=== PATIENT | female | born 1930 | race Caucasian/White ===

== ENCOUNTER 2016-03-25 03:17 | Emergency (ER) | payer MEDICARE, OTHER ==
[~2016-03-25] VITALS: Ht 165.1 cm; Wt 70.5 kg
[~2016-03-25 03:17] MED LIST: AMIO200T PO; ATRO5DRO LEFT_EYE; CLOP75TA28 PO; HYDR-4003 PO; HYDR12.5 PO; ISOS30TA4 PO; METO25TA6 PO; NITR0.4T6 SL; OFLO5DRO9 LEFT_EYE; ONDA8TAB10 PO; PRAV40TA PO; PRD5T PO; PRED5DRO6 LEFT_EYE
[2016-03-25 03:22] VITALS: BP 179/74; PULSE 69; RESP 18; O2SAT 96
--- NOTE | 2016-03-25 03:47 | ED.REPORT ---
HPI-General Illness Date of Service Mar 25, 2016 ED Provider: King Schulte MD Pt is 85 y/o female who reports to the ED with her daughter complaining of bilateral cramping lower extremity pain onset 2300 yesterday, currently resolved. Symptoms were treated with Vicodin at midnight, with no relief. Patient denies any recent atypical exertion, and decreased food or fluid intake. She admits that she fell several weeks ago and landed on her buttocks. Nursing Notes Stated Complaint: LEG CRAMPS Chief Complaint: General Complaint Nursing Notes Reviewed: Yes Allergies: Coded Allergies: atorvastatin (Verified Allergy, Severe, MYALGIA, 03/25/16) hydrocodone (Verified Allergy, Severe, N & V, 03/25/16) amiodarone (Verified Allergy, Intermediate, 03/25/16) oxycodone (Verified Allergy, Intermediate, 03/25/16) codeine (Verified Allergy, Unknown, 03/25/16) ibuprofen (Verified Allergy, Unknown, 03/25/16) Scheduled Amiodarone (Amiodarone) 200 Mg Tablet 200 MG PO DAILY Atropine Sulfate (Isopto Atropine) 5 Ml Drops 1 DROP LEFT_EYE BID Clopidogrel (Clopidogrel) 75 Mg Tablet 75 MG PO DAILY Hydrochlorothiazide (Hydrochlorothiazide) 12.5 Mg Capsule 12.5 MG PO DAILY Isosorbide MN ER (Isosorbide MN ER) 30 Mg Tab.er.24h 30 MG PO DAILY Metoprolol Tartrate (Metoprolol Tartrate) 25 Mg Tablet 12.5 MG PO BID Ofloxacin (Ofloxacin) 5 Ml Drops 1 DROP LEFT_EYE BID Pravastatin (Pravastatin) 40 Mg Tablet 40 MG PO HS Prednisolone Acetate (Prednisolone Acetate) 5 Ml Drops.susp 1 DROP LEFT_EYE QID Prednisone (PredniSONE) 5 Mg Tab 5 MG PO DAILY Scheduled PRN Hydrocodone-Acetaminophen 5-325 mg (Hydrocodone-Acetaminophen 5-325 mg) 1 Each Tablet 1 TABLET PO Q4H PRN PRN For Pain Nitroglycerin SL (Nitroglycerin SL) 0.4 Mg Tab.subl 0.4 MG SL Q5MIN PRN PRN For Chest Pain Ondansetron ODT (Ondansetron ODT) 8 Mg Tab.rapdis 8 MG PO Q4H PRN PRN For Nausea Take 5-10 minutes prior to taking pain medication and antinausea General Time Seen by MD: 03:43 Chief Complaint Other (Leg cramps) Hx Obtained From: Patient, Daughter Arrived By: Walk-in Onset Occurred: 5 - 8 hours ago Symptom Duration: Since onset Location: : Leg left: Leg right Severity: Current: No pain currently Past Medical History Past Medical History Notes: Cardiology: Dr. Saenz PCP: Dr. Zimmerman Per patient: DNR Echo 11/27/14: Nl EF 60-65%, nl LV, bioprosthetic aortic valve Past Medical History 1. Atrial fibrillation, acute treated with cardioversion and maintained now in sinus rhythm. 2. Left bundle branch block since April of 2014. 3. Critical aortic valve stenosis. 4. Hypertension. 5. Polymyalgia rheumatica, requiring chronic steroid use. 6. Cardiovascular disease. 7. Gastroesophageal reflux disease. 8. Dyslipidemia. 9. Osteoarthritiis 10. neuropathy Reports: Hypertension Past Surgical History Aortic Valve Replecement 07/2014 (bioprosthetic) Total knee replacement Breast biopsy cardiac stent cataract surgery Reports: Appendectomy, Hysterectomy Family History Reports: Coronary artery disease Reports: Cancer Smoking History Never Smoker Social History Per patient: DNR Alcohol Use: Denies alcohol use Drug Use: Denies drug use Other Social History: Good social support, Local resident Ambulatory Status Wheelchair Review of Systems Full Review of Systems Respiratory: Denies: Non-productive cough, Shortness of breath Cardiovascular: Denies: Chest pain Musculoskeletal: Reports: Extremity pain (Bilateral Lower), Denies: Back pain, Joint pain, Lumbar pain, Neck pain, Thoracic pain Complete sys rev & neg: except as marked. Physical Exam Vital Signs Vital Signs Date Time Temp Pulse Resp B/P Pulse Ox O2 Delivery O2 Flow Rate FiO2 03/25/16 06:56 36.7 84 18 142/84 96 Room Air 03/25/16 03:22 36.1 69 18 179/74 96 Room Air Initial VS: Reviewed, Vital signs abnormal General/Constitutional: Well-developed, Well-nourished Head / Eyes: Atraumatic, Normocephalic, PERRL Neck: Supple, Non-tender, Full range of motion Respiratory: Breath sounds normal, Clear to auscultation, No respiratory distress Cardiovascular: Regular rate & rhythm, Heart sounds normal, Intact distal pulses Skin: Warm, Dry, No cyanosis Neurologic: Alert, Oriented, Nonfocal Psychiatric: Mood/affect normal, Behavior normal, Normal thought content General/Constitutional: Awake, Alert, Well nourished, Cooperative, Not toxic appearing Head / Eyes: Atraumatic, Normocephalic Respiratory / Chest: Atraumatic, Breath sounds NL, No respiratory distress, No rales, No rhonchi, No wheezing Lower Extremity / Pelvis / MS: Atraumatic, Full range of motion, Non-tender, No deformity, Neurologic intact, Vascular intact Interpretation & Diagnostics Lab Results Interpretation Result Diagram: 03/25/16 0445 Test 03/25/16 04:45 Sodium Level 137mEq/L (134-144) Potassium Level 4.4mEq/L (3.5-5.2) Chloride Level 100mEq/L (97-108) Carbon Dioxide Level 26mmol/L (18-29) Blood Urea Nitrogen 28mg/dL (8-27) Creatinine 0.67mg/dL (0.57-1.00) Estimat Glomerular Filtration Rate 120mL/min (>59) Glucose Level 104mg/dL (60-99) Calcium Level 9.0mg/dL (8.5-10.1) Phosphorus Level 3.3mg/dL (2.5-4.9) Magnesium Level 2.0mg/dL (1.6-2.6) Hold [place] Top Tube Received (Received) Lab values outside NL range: no clinical significance. Re-Eval/Medical Decision Med Decision/Clinical Course 85-year-old female with leg cramps. Labs are normal. Quinine water as recommended. She will follow-up with her primary doctor as needed for persistent symptoms. Time of Eval: 06:43 Re-Evaluation/Progress Note: Discussed lab results and plan to discharge. Patient is amenable to the plan. Counseled Regarding: Diagnosis, Lab results, Need for follow-up, When/why to return to ED Discharge & Departure Primary Impression: Leg cramps Laterality: right Qualified Code: R25.2 - Cramp and spasm Disposition: Home Discharge Condition All VS Reviewed: Yes Condition: Stable Patient Instructions: Leg Cramps (ED) Additional Instructions: The cause of your leg cramps is not certain. Your electrolytes are all normal. You may be just a little bit dehydrated. Drink plenty of fluids. Avoid over activity and excessive fatiguing of the muscles. Get plenty of sleep. [place] water containing quinine may be helpful for leg cramps. I will up with your regular doctor as needed. Referrals: Jorge Zimmerman MD (PCP) Sharon Attestation Portions of this note were transcribed by Jayden Manzo and Radames Childers. I, Dr. Schulte personally performed the history, physical exam and medical decision-making; I reviewed and confirmed the accuracy of the information in the transcribed note. Signed by: Sharon Gomes, 03/25/16 and 06:48. copies to: Jorge Zimmerman MD, Howard L MD Mar 25, 2016 03:47 Jayden Manzo Mar 25, 2016 04:04 RADAMES CHILDERS Mar 25, 2016 05:02
[2016-03-25 05:58] LABS: Phosphorus 3.3 mg/dL (2.5-4.9)
[2016-03-25 06:56] VITALS: BP 142/84; PULSE 84; RESP 18; O2SAT 96
== END 2016-03-25 06:46 | disposition home or self-care (01) ==
LOC: SED 03:17
DX: R25.2 Cramp and spasm (principal); I48.91 Unspecified atrial fibrillation; I10 Essential (primary) hypertension; E78.5 Hyperlipidemia, unspecified; K21.9 Gastro-esophageal reflux disease without esophagitis; Z87.828 Personal history of other (healed) physical injury and trauma; Z88.5 Allergy status to narcotic agent; Z88.8 Allergy status to other drugs, medicaments and biological substances

== ENCOUNTER 2016-05-01 09:31 | Inpatient (IN) | payer MEDICARE, OTHER ==
[~2016-05-01] VITALS: Ht 165.1 cm; Wt 72.4 kg
--- NOTE | 2016-05-01 09:41 | ED.REPORT ---
HPI-General Illness Date of Service May 01, 2016 ED Provider: The patient is an 85 year old female with history of atrial fibrillation, aortic valve stenosis, hypertension, polymyalgia rheumatica on chronic steroids , GERD, and dyslipidemia, who was sent to the emergency department by her hvac lead for worsening chest pressure, generalized weakness, and shortness of breath. The chest pressure has been constant and worsened over last night. The patient has been in atrial fibrillation for 10 days and was sent to the emergency department for hospitalization to get sotalol. She has noticed an occasional cough. She denies fever, chills or lower extremity swelling. She took all of her prescribed medication this morning. Nursing Notes Stated Complaint: POSSIBLE HEART ISSUES/SENT FROM CARDIOLOGY Nursing Notes Reviewed: Yes Allergies: Coded Allergies: atorvastatin (Verified Allergy, Severe, MYALGIA, 05/01/16) hydrocodone (Verified Allergy, Severe, N & V, 05/01/16) amiodarone (Verified Allergy, Intermediate, 05/01/16) oxycodone (Verified Allergy, Intermediate, 05/01/16) codeine (Verified Allergy, Unknown, 05/01/16) ibuprofen (Verified Allergy, Unknown, 05/01/16) Scheduled Amiodarone (Amiodarone) 200 Mg Tablet 200 MG PO DAILY Atropine Sulfate (Isopto Atropine) 5 Ml Drops 1 DROP LEFT_EYE BID Clopidogrel (Clopidogrel) 75 Mg Tablet 75 MG PO DAILY Hydrochlorothiazide (Hydrochlorothiazide) 12.5 Mg Capsule 12.5 MG PO DAILY Isosorbide MN ER (Isosorbide MN ER) 30 Mg Tab.er.24h 30 MG PO DAILY Metoprolol Tartrate (Metoprolol Tartrate) 25 Mg Tablet 12.5 MG PO BID Ofloxacin (Ofloxacin) 5 Ml Drops 1 DROP LEFT_EYE BID Pravastatin (Pravastatin) 40 Mg Tablet 40 MG PO HS Prednisolone Acetate (Prednisolone Acetate) 5 Ml Drops.susp 1 DROP LEFT_EYE QID Prednisone (PredniSONE) 5 Mg Tab 5 MG PO DAILY Scheduled PRN Hydrocodone-Acetaminophen 5-325 mg (Hydrocodone-Acetaminophen 5-325 mg) 1 Each Tablet 1 TABLET PO Q4H PRN PRN For Pain Nitroglycerin SL (Nitroglycerin SL) 0.4 Mg Tab.subl 0.4 MG SL Q5MIN PRN PRN For Chest Pain Ondansetron ODT (Ondansetron ODT) 8 Mg Tab.rapdis 8 MG PO Q4H PRN PRN For Nausea Take 5-10 minutes prior to taking pain medication and antinausea General Time Seen by MD: 09:41 Chief Complaint Chest pain, Weakness, Other (shortness of breath) Hx Obtained From: Patient Arrived By: Walk-in Sudden in Onset?: No Onset Occurred: More than a week ago... Symptom Duration: Since onset Location: : Chest Quality: Pressure Severity: Current: Moderate Severity: Maximum: Severe Recent Healthcare: No recent hospitalization, Recent doctor visit Similar Sx Previous: Yes Past Medical History Past Medical History Notes: Cardiology: Dr. Saenz PCP: Dr. Zimmerman Per patient: DNR Echo 11/27/14: Nl EF 60-65%, nl LV, bioprosthetic aortic valve Past Medical History 1. Atrial fibrillation, acute treated with cardioversion and maintained now in sinus rhythm. 2. Left bundle branch block since April of 2014. 3. Critical aortic valve stenosis. 4. Hypertension. 5. Polymyalgia rheumatica, requiring chronic steroid use. 6. Cardiovascular disease. 7. Gastroesophageal reflux disease. 8. Dyslipidemia. 9. Osteoarthritiis 10. neuropathy Past Surgical History Aortic Valve Replecement 07/2014 (bioprosthetic) Total knee replacement Breast biopsy cardiac stent cataract surgery Reports: Appendectomy, Hysterectomy Family History Noncontributory Reports: Coronary artery disease Reports: Cancer Smoking History Never Smoker Social History Alcohol Use: Denies alcohol use Drug Use: Denies drug use Other Social History: Good social support, Local resident Ambulatory Status Wheelchair Review of Systems Full Review of Systems Constitutional: Denies: Chills, Fever Respiratory: Reports: Non-productive cough (occasional), Shortness of breath Cardiovascular: Reports: Chest pain Musculoskeletal: Denies: Extremity swelling Neurologic: Reports: Weakness Complete sys rev & neg: except as marked. Physical Exam Vital Signs Vital Signs Date Time Temp Pulse Resp B/P Pulse Ox O2 Delivery O2 Flow Rate FiO2 05/01/16 09:43 36.8 126 25 140/57 95 Room Air Initial VS: Reviewed Head / Eyes: Atraumatic, Normocephalic, PERRL ENT: Mucous membranes moist, Conjunctiva normal, No scleral icterus Neck: Supple, Non-tender, Full range of motion Respiratory: Breath sounds normal, Clear to auscultation, No respiratory distress Abdomen / GI: Soft, Non-tender, No guarding, No rebound, No distention Lymphatic: No lymphadenopathy Extremities: Vascular intact, Neuro intact, No swelling, No tenderness Skin: Warm, Dry, No cyanosis Neurologic: Alert, Oriented, Nonfocal Psychiatric: Mood/affect normal, Behavior normal, Normal thought content General/Constitutional: Awake, Alert, No acute distress, Cooperative Pleasant Cardiovascular: Heart rate NL, Heart sounds NL, No murmurs, No rubs, Peripheral circulation NL, Pulses = bilaterally Heart Rate / Rhythm: Positive: Irreg irregular rhythm Interpretation & Diagnostics Lab Results Interpretation Result Diagram: 05/01/16 1000 05/01/16 1000 Test 05/01/16 10:00 White Blood Count 12.7th/mm3 (3.8-10.1) Red Blood Count 3.71mil/mm3 (3.90-5.20) Hemoglobin 11.6g/dL (12.0-15.6) Hematocrit 36.1% (35.0-46.0) Mean Corpuscular Volume 97.3fL (81-100) Mean Corpuscular Hemoglobin 31.3pg (27.0-35.0) Mean Corpuscular Hemoglobin Concent 32.1% (32.0-37.0) Red Cell Distribution Width 14.2% (12.3-15.4) Platelet Count 289bil/L (150-400) Neutrophils (%) (Auto) 69.3% (40-74) Lymphocytes (%) (Auto) 20.2% (14-46) Monocytes (%) (Auto) 9.4% (4-12) Eosinophils (%) (Auto) 0.6% (0-5) Basophils (%) (Auto) 0.2% (0-3) Prothrombin Time 10.7sec (8.1-12.5) Prothromb Time International Ratio 1.00ratio Sodium Level 139mEq/L (134-144) Potassium Level 3.6mEq/L (3.5-5.2) Chloride Level 103mEq/L (97-108) Carbon Dioxide Level 22mmol/L (18-29) Blood Urea Nitrogen 25mg/dL (8-27) Creatinine 0.74mg/dL (0.57-1.00) Estimat Glomerular Filtration Rate 107mL/min (>59) Glucose Level 191mg/dL (60-99) Calcium Level 8.8mg/dL (8.5-10.1) Magnesium Level 1.8mg/dL (1.6-2.6) Total Bilirubin 0.3mg/dL (0.0-1.2) Aspartate Amino Transf (AST/SGOT) 21U/L (0-50) Alanine Aminotransferase (ALT/SGPT) 38U/L (0-32) Alkaline Phosphatase 52U/L (25-165) Troponin T 0.010ug/L (0.0-0.011) Total Protein 6.8g/dL (6.4-8.4) Albumin 3.6g/dL (3.4-5.0) ECG Interpretation ECG Interpretation: Atrial fibrillation with a rate of 96 LBBB Time: 10:19 Interpreted by: ED physician X-Ray Chest Interpretation Chest Xray Interpretation: IMPRESSION: No acute cardiopulmonary disease. Dictated by: Ti Alfaro M.D. on 05/01/2016 at 11:10 Interpretation / Wet Read by: Interpret - Radiologist Re-Eval/Medical Decision Med Decision/Clinical Course Plan to admit for sotalol and possible cardioversion. Source of Hx: Old records, Private physician Time of Eval: 09:55 Re-Evaluation/Progress Note: Discussed plan for admission with the patient. Consultation #1: Referral / Consult Name: Niurka Saenz MD Consulted With: Cardiology Call Returned at: 10:00 [employer] U[employer] Web Developer: Agrees with eval, Agrees with plan Note: Admit patient, consult with Hetal, start sotalol, heparinize if INR is less than 2. Consultation #2: Referral / Consult Name: Justin Fong MD Consulted With: Cardiology Call Returned at: 10:27 [employer] Web Developer: Will see patient, Agrees with eval, Agrees with plan Note: Agrees to consult. Consultation #3: Referral / Consult Name: Kristin Almodovar DO Consulted With: Hospitalist Call Returned at: 10:46 U[employer] Web Developer: Will see patient, Agrees with eval, Agrees with plan, Accepts admit Note: Spoke with the resident for Dr. Angelo. Counseled Regarding: Diagnosis, Lab results, Need for admission Discharge & Departure Primary Impression: Atrial fibrillation Atrial fibrillation type: unspecified Qualified Code: I48.91 - Unspecified atrial fibrillation Additional Impression: Chest pain Chest pain type: unspecified Qualified Code: R07.9 - Chest pain, unspecified Disposition: ADMITTED TO HOSPITAL Discharge Condition All VS Reviewed: Yes Condition: Stable Referrals: Jorge Zimmerman MD (PCP) Razaibtiffani Attestation Portions of this note were transcribed by Janett Langston. I, Dr. Mack personally performed the history, physical exam and medical decision-making; I reviewed and confirmed the accuracy of the information in the transcribed note. Signed by: Sharon Wilson, 05/01/2016 and 1120. copies to: Jorge Zimmerman MD, Timothy S DO May 01, 2016 09:41 Janett Langston May 01, 2016 09:48
[2016-05-01 09:43] VITALS: BP 140/57; PULSE 126; RESP 25; O2SAT 95
[2016-05-01] MEDS ORDERED: Ondansetron 2 mg/mL 2 mL Inj IVPUSH ONE (10:00)
[2016-05-01 10:10] LABS: BASOPHILS % (AUTO) 0.2 % (0-3); EOSINOPHILS % (AUTO) 0.6 % (0-5); MONOCYTES % (AUTO) 9.4 % (4-12); Mean Corpuscular Hemoglobin 31.3 pg (27.0-35.0); Mean Corpuscular Volume 97.3 fL (81-100); NEUTROPHILS % (AUTO) 69.3 % (40-74); Platelet Count 289 bil/L (150-400)
[2016-05-01 10:32] LABS: TROPONIN T 0.01 ug/L (0.0-0.011)
[2016-05-01 10:44] LABS: Magnesium 1.8 mg/dL (1.6-2.6)
[2016-05-01] MEDS ORDERED: Alum-Mag Hydrox-Simeth 30 mL Suspension PO PRN (10:50)
[2016-05-01] MEDS ORDERED: Ondansetron 2 mg/mL 2 mL Inj IVPUSH PRN (10:50)
[2016-05-01] MEDS ORDERED: Polyethylene Glycol (PEG) 17 Gm Powder PO PRN (10:50)
--- NOTE | 2016-05-01 11:12 | DRSVH ---
PROCEDURE: X-RAY CHEST ONE VIEW, PORTABLE ([id number]) INDICATIONS: chest pain TECHNIQUE: One view of the chest was acquired. COMPARISON: [facility], CR, XR CHEST 1VW (PORTABLE), 12/18/2014, 17:06. FINDINGS: Surgical changes and devices: There is a aortic valve prosthesis. Lungs and pleura: No pleural effusions or pneumothorax. Lungs are clear. Mediastinum: Mediastinal contours appear normal. Heart size is normal. Bones and chest wall: No suspicious bony lesions. Overlying soft tissues appear unremarkable. IMPRESSION: No acute cardiopulmonary disease. Dictated by: Ti Alfaro M.D. on 05/01/2016 at 11:10 Approved by: Ti Alfaro M.D. on 05/01/2016 at 11:10
[2016-05-01 12:22] VITALS: PULSE 110
[2016-05-01 12:40] VITALS: BP 108/65; PULSE 94; RESP 18; O2SAT 95
--- NOTE | 2016-05-01 12:55 | NUR ---
Admit Note [place] [facility] [place] Pt denies any pain or discomfort, VSS, tele afib 90's-low 100's. Pt able to transfer to bathroom using FWW with steady gait. Plan of care reviewed with pt, enc to use call light for all needs/transfers out of bed. Cont to monitor.
[2016-05-01] MEDS ORDERED: WARF2.5T82 PO (14:24)
[2016-05-01] MEDS ORDERED: AMLO2.5T PO (14:24)
[2016-05-01] MEDS ORDERED: PANT20TA2 PO (14:27)
[2016-05-01] MEDS ORDERED: ALBU8.5H2 INHALATION (14:27)
[2016-05-01] MEDS ORDERED: PRAV80TA2 PO (14:32)
[2016-05-01] MEDS ORDERED: DORZ10DR20 LEFT_EYE (14:37)
[2016-05-01] MEDS ORDERED: LEVO25TA5 PO (14:37)
--- NOTE | 2016-05-01 14:52 | PCM.PHAPRO ---
Progress WARFARIN DOSING PER PHARMACY Indication: Afib Pertinent Hx: Aortic Valve Stenosis, HTN INR Goal: 2-3 Additional anticoagulation: N/A DI: N/A Note: No home dose, pt has hx of afib and has gotten doses in past hospitalizations Date -Apr INR 1.00 INR change Warf Dose P: Will give one dose of warfarin 5 mg PO tonight Pharmacy will monitor INR/CBC/signs and symptoms of bleeding Dacia Holden PharmD May 01, 2016 14:52
[2016-05-01] MEDS ORDERED: Albuterol 2.5 mg/3 mL Inhalation Solution NEB PRN (15:05)
--- NOTE | 2016-05-01 15:18 | PCM.HPMED ---
Subjective Date of Service May 01, 2016 Primary Provider: Admitting Physician: Micah Angelo MD Primary Care Physician: Jorge Zimmerman MD Attending Physician: Micah Angelo MD Admit Status: From the Emergency Department, Full Admit Chief Complaint: Atrial fibrillation. History of Present Illness: Horacio Carmen is an 85-year-old female with a past medical history significant for critical aortic valve stenosis status post bioprosthetic valve replacement, hypertension, hyperlipidemia, polymyalgia rheumatica on chronic steroids, and paroxysmal atrial fibrillation recently started on warfarin within the last week who was sent to [facility] Emergency Department by her marketing rep Dr. Saenz for worsening chest pressure and shortness of breath. The chest pressure has been constant and started last night. She reports it wasn't getting better, therefore, she called her cardiologists office to get it this morning. She endorses associated heaviness, breathlessness , and palpitations. The chest pressure is substernal and does not radiate. She has had this years ago for which she was cardioverted for. The patient has been in atrial fibrillation for the last 10 days and was sent to the hospital to be started on sotalol. She denies headache, double vision, lightheadedness, abdominal pain, extremity pain, nausea, vomiting, fever, chills or lower extremity swelling. She has taken all of her prescribed medications this morning. Vital signs in the ER: Temperature 36.8. Pulse 126. Respiratory rate 25. Blood pressure 140/57. Pulse ox 95% room air. She was given ASA 324 mg x 1, Zofran 4 mg IV x 1 and Sotalol 80 mg x 1. Automobile Uph[employer]ste[employer] is Dr. Saenz. PCP is Dr. Zimmerman. . Review of Systems: A comprehensive review of systems was conducted with the patient and found to be negative except as above in the History of Present Illness. . Allergies Coded Allergies: hydrocodone (Verified Allergy, Severe, N & V, 05/01/16) amiodarone (Verified Allergy, Intermediate, 05/01/16) oxycodone (Verified Allergy, Intermediate, 05/01/16) atorvastatin (Verified Allergy, Unknown, 05/01/16) codeine (Verified Allergy, Unknown, 05/01/16) ibuprofen (Verified Allergy, Unknown, 05/01/16) Home Medications Albuterol 2 puffs inhaled every 4 hours as needed for shortness of breath. Amlodipine 2.5 mg daily. Clopidogrel 75 mg daily (recently discontinued). Dorzolamide-Timolol 1 gtt in eye twice a day. Hydrochlorothiazide 12.5 g daily. Isosorbide mononitrate ER 30 mg daily. Levothyroxine 25 g daily. Metoprolol tartrate 12.5 mg twice a day. Nitroglycerin 0.4 MG SL every five minutes as needed for chest pain. Pantoprazole DR 20 mg twice a day. Pravastatin 80 mg daily. Prednisolone Acetate 5 Ml Drops 1 drop left eye 4 times daily. Warfarin sodium 2.5 mg daily. . PMH 1. Proximal atrial fibrillation. 2. Left bundle branch block (April of 2014). 3. Critical aortic valve stenosis status post t aortic valve replacement. 4. Hypertension. 5. Polymyalgia rheumatica, requiring chronic prednisone use. 6. Coronary artery disease status post stent to mid LAD and possible other stents. 7. Gastroesophageal reflux disease. 8. Hyperlipidemia. 9. Osteoarthritis. 10. 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 12. Hypothyroidism. 13. History of left eye injury. . Surgical History 1. Transcutaneous Aortic Valve Replacement 07/2014 (bioprosthetic). 2. Right total knee replacement. 3. Breast biopsy. 4. Coronary artery disease status post stent to mid LAD. 5. Bilateral cataract extraction. 6. Appendectomy. 7. Total abdominal hysterectomy with bilateral salpingoophrectomy. . 8. Left eye repair surgery. . Family History Mother and father both from heart disease. There is also CAD in her other siblings. . Social History Hx Alcohol Use: No Hx Substance Use: No Hx Tobacco Use: No Smoking Status: Never Smoker Additional Information The patient is and was 31 years. Lost a daughter to cancer. She has 4 biological children and 4 adopted children. Born in [place] and moved to [place] after high school. . Exam Vital Signs Vital Sign - Last Date Time Temp Pulse Resp B/P Pulse Ox O2 Delivery O2 Flow Rate FiO2 05/01/16 09:43 36.8 126 25 140/57 95 Room Air Exam General: Elderly female lying in bed and in no acute distress, well-developed, well-nourished, appropriately interactive. HEENT: Normocephalic, atraumatic. External ears without defect. Pupils equal, round, and reactive to light. Anicteric sclerae, moist conjunctivae, and no lid lag. Oropharynx free of erythema and cobble stoning with moist mucosa. Neck: Supple with full range of motion. No jugular venous distension. No bruits. No lymphadenopathy or thyromegaly. Cardiovascular: Irregularly irregular rhythm, tachycardic, without murmurs, rubs , or gallops appreciated Pulmonary: Clear to auscultation bilaterally with no crackles, wheezes, or rhonchi. Normal respiratory effort with no use of accessory muscles. Abdomen: Soft, nontender, nondistended, bowel tones present. No hepatosplenomegaly or masses appreciated. Extremities: No clubbing, cyanosis, or edema. Skin: Normal temperature, turgor, and texture; no rash, ulcers, or subcutaneous nodules appreciated. Neurological: Cranial nerves grossly intact. Psychiatric: Normal mood and affect. Alert and oriented to person, place, and time. . Lab and Diagnostics Labs Item Value Date Time Prothrombin Time 10.7 sec 05/01/16 1000 Prothromb Time International Ratio 1.00 ratio 05/01/16 1000 Item Value Date Time Calcium Level 8.8 mg/dL 05/01/16 1000 Magnesium Level 1.8 mg/dL 05/01/16 1000 Total Bilirubin 0.3 mg/dL 05/01/16 1000 Aspartate Amino Transf (AST/SGOT) 21 U/L 05/01/16 1000 Alanine Aminotransferase (ALT/SGPT) 38 U/L H 05/01/16 1000 Alkaline Phosphatase 52 U/L 05/01/16 1000 Troponin T 0.010 ug/L 05/01/16 1000 Total Protein 6.8 g/dL 05/01/16 1000 Albumin 3.6 g/dL 05/01/16 1000 Result Diagram: 05/01/16 1000 05/01/16 1000 X-Rays, CTs and MRIs X-RAY CHEST ONE VIEW, PORTABLE IMPRESSION: No acute cardiopulmonary disease. Dictated by: Ti Alfaro M.D. on 05/01/2016 at 11:10 Approved by: Ti Alfaro M.D. on 05/01/2016 at 11:10 . 12-lead ECG EKG: Atrial fibrillation, heart rate 96, normal axis, LBBB. . Cardiac Echo Impressions Echocardiogram Interpretation Summary: There is mild concentric left ventricular hypertrophy. The ejection fraction is estimated to be 60-65%. Septal motion is consistent with post-operative state. The E/A ratio is reversed, suggesting impaired early relaxation of the left ventricle or a reduced preload state. The right ventricle is normal in size and function. The right ventricular systolic pressure is estimated at 41 mmHg assuming a right atrial pressure of 8 mm Hg. The left atrium is moderately dilated. Right atrial size is normal. There is a bioprosthetic aortic valve. There is trace aortic regurgitation. There is no hemodynamically significant valvular aortic stenosis. There is no other significant valvular heart disease. The aortic root is normal size. Reading Physician:PM . Assessment & Plan Horacio Carmen is an 85-year-old female with a past medical history significant for critical aortic valve stenosis status post bioprosthetic valve replacement, hypertension, hyperlipidemia, polymyalgia rheumatica on chronic steroids, and paroxysmal atrial fibrillation recently started on warfarin within the last week who was sent to [facility] Emergency Department by her marketing rep Dr. Saenz for worsening chest pressure and shortness of breath. 1. Proximal atrial fibrillation, present on admission. Active. - Patient presented with chest pressure and shortness of breath. Patient was found to be in atrial fibrillation with RVR. - Recently started on warfarin with subtherapeutic INR of 1.0. Will continue warfarin with dosing per pharmacy. - Started sotalol per the patient's marketing rep Dr. Saenz. Continue Sotalol 80 mg twice daily. Monitor relative QTc interval despite LBBB with EKG 2 hours after each dose is given. - Ordered TSH, pending. - Continue to monitor closely on telemetry. - Ordered echocardiogram TTE at recommendation of her marketing rep Dr. Saenz who plans for JUAN cardioversion on 05/05/16. - Start a cardiac heparin gtt per cardiology for probable JUAN cardioversion on 05/05/2016. - Dr. Fong was consulted and will plan to see the patient. His recommendations and care of the patient are appreciated. 2. Chest pressure with shortness of breath, likely secondary to atrial fibrillation with RVR, present on admission. Active. - The patient had a stress test which was within normal limits and echocardiogram as above in 03/31. Will leave to the discretion of cardiology whether these should be repeated. - EKG shows atrial fibrillation with LBBB as above. Does not meet Sgarbossa's criteria indicative for acute ischemia in presence of LBBB. - Continue aspirin 81 mg daily and equivalent of pravastatin 80 mg every night before bedtime. Chronic Problems: Hypertension, chronic. - Continue amlodipine 2.5 mg daily, hydrochlorothiazide 12.5 mg daily, and Imdur 30 mg daily. Hyperlipidemia, chronic. - Continue equivalent of pravastatin 80 mg every night before bedtime. Coronary artery disease status post stent to mid LAD. - Continue aspirin 81 mg daily and equivalent of pravastatin 80 mg every night before bedtime. Hypothyroidism, chronic. - Continue levothyroxine 25 g daily. Polymyalgia rheumatica, chronic. - Continue maintenance dose of prednisone 5 mg daily. Amiodarone pulmonary toxicity, chronic. - Continue maintenance dose of prednisone 5 mg daily for PMR. - Ordered AccuNeb every four hours as needed for shortness of breath. Gastroesophageal reflux disease, chronic. - Continue pantoprazole 20 mg twice daily. History of left eye injury. - Continue home eye drops including: Dorzolamide-Timolol 1 gtt in eye twice a day and prednisolone Acetate 5 Ml Drops 1 drop left eye 4 times daily. Peripheral neuropathy. - Not medically treated. PRN antiemetics: Zofran and Maalox. PRN bowel regimen: Senna and MiraLAX. PRN analgesics: Tylenol. Patient is admitted under inpatient status with expected length of stay greater than 2 midnights due to severity of presenting symptoms, risk of adverse event, and complexity of treatment plan. . VTE Prophylaxis: Other (heparin GTT bridged to warfarin) Resuscitation Status: DNR/DNI:Do Not Resuscitate/Intubate Attending Statement The patient was seen and examined together with Dr. Almodovar on 05-01-16 and I agree with the history, exam and plan as outlined in the note above. Kristin Almodovar DO May 01, 2016 11:38 Micah Angelo MD May 02, 2016 15:10
[2016-05-01] MEDS ORDERED: Heparin 5,000 Unit/mL Inj IVPUSH PRN (16:20)
[2016-05-01] MEDS ORDERED: PrednisoLONE 1% 1 mL Ophthalmic Suspension LEFT_EYE SCH (16:30)
--- NOTE | 2016-05-01 16:58 | CONS ---
[address] [address] CONSULTATION REPORT PATIENT: GLEN PERERA : 1930 MR#: [id number] ADMIT: 05/01/2016 JOB ID: [id number] DATE OF SERVICE: 05/01/2016 CARDIOLOGY CONSULTATION: I have been asked by the hospitalist team to assist with the patients evaluation and management from a cardiac standpoint. HISTORY OF PRESENT ILLNESS: The patient is an 85-year-old female with a history of paroxysmal symptomatic atrial fibrillation brought in for institution of sotalol therapy. She has a complicated cardiac history dating back to April 2014 when she presented with symptomatic atrial fibrillation and was found to have evidence of critical aortic stenosis as well. She was started up on amiodarone therapy, as well as warfarin, and underwent a JUAN cardioversion. Subsequently she was seen and evaluated at the [facility] and underwent a successful aortic valve replacement with a 23 mm ALESSANDRO valve through transfemoral approach and was identified at the time as having a calcified 60% mid LAD stenosis with some involvement of the diagonal vessel but absence of significant disease involving her circumflex and right coronary artery. She remained on her warfarin therapy in addition to aspirin. In December she presented with symptoms of recurrent exertional angina-like chest discomfort and diagnostic coronary angiography demonstrated a highly calcified 80% to 90% lesion involving her mid LAD. She underwent rotational atherectomy in December but developed recurrent symptoms and in January 2015 underwent repeat rotational atherectomy with stenting with a 2.5 x 25 mm drug-eluting stent. As with her TAVR procedure she noted significant clinical improvement and resolution of her anginal chest discomfort. At that point her aspirin was discontinued and she was placed on warfarin and Plavix, however one month later she presented with a significant GI bleed requiring transfusion and hospitalization. Upper GI and lower GI endoscopies were negative and her warfarin was discontinued and she was placed on aspirin and Plavix. In March 2015 she presented with increasing dyspnea and nonproductive cough with a chest x-ray and CT scan of her chest showing interstitial infiltrates consistent with amiodarone pulmonary toxicity. She was treated with several courses of high-dose steroid therapy and has been seen and followed by pulmonology over the past year with gradual improvement. In August of last year she had some recurrent GI bleeding but this did not result in the need for transfusion or changes to her medication. This patient presented then on April 29, two days ago, to our clinic with a 1-week history of constant precordial pressure-like chest discomfort and exertional dyspnea and fatigue and was noted to be in atrial fibrillation with a moderately rapid ventricular response. Warfarin was restarted at that time, Plavix was discontinued, and she was asked to continue low-dose aspirin at 81 mg a day. In addition, her metoprolol was increased to 25 mg twice daily. She was scheduled to come back for followup the next week but this patient has states that her rather persistent somewhat atypical chest discomfort worsened last night and therefore she contacted our office today and was advised to present to the emergency department for admission and institution of sotalol therapy. The patient currently is resting comfortably in bed and looks well, although she is aware of some persistent precordial pressure, but it does not radiate and it is unassociated with symptoms of diaphoresis or nausea or significant dyspnea other than with exertion. REVIEW OF SYSTEMS: Notable for the absence of recurrent melena or hematochezia. She denies any history of stroke or TIA symptoms. She has no complaints of orthopnea or paroxysmal nocturnal dyspnea. No complaints of palpitations or edema. MEDICATIONS: At home include a variety of fairly low-dose medications including low-dose hydrochlorothiazide, low-dose isosorbide mononitrate, and low-dose metoprolol tartrate. She is on prednisone for a history of polymyalgia rheumatica. She has been on pravastatin 80 mg daily. In addition, she takes amlodipine 2.5 mg a day, low-dose aspirin as mentioned. She takes Protonix 20 mg twice daily and levothyroxine 25 mcg daily. PAST MEDICAL HISTORY: Includes her left bundle branch block history. She does have a history of gastroesophageal reflux as well. Her TSH was noted to be elevated when she presented in March of last year, likely due to her amiodarone, and apparently at that time she also was found to have a thyroid nodule. An evaluation for that was ordered but I am not clear that has been further resolved. SOCIAL HISTORY: The patient is . She lives in [place]. She has a daughter that takes care of most of her medications and so forth. She is a nonsmoker. PHYSICAL EXAMINATION: Shows a delightful 85-year-old female. She is 5 feet 5 inches tall, weighs 160 pounds. Heart rates have generally been between 95 and 110, blood pressures ranging between 108 and 140. She has normal O2 saturation and is afebrile. Cardiovascular examination is notable for normal jugular venous pressure. Her carotid upstroke is normal in amplitude and upstroke velocity, without obvious bruits, although she does have known carotid atherosclerosis. Lung baugh demonstrate a few scattered rales but no wheezing. Cardiac auscultation is notable for an irregularly irregular rhythm. S2 is somewhat prominent and is paradoxically split. Abdomen is soft and nontender, with active bowel tones. No evidence of aortic enlargement. No audible bruit. Distal extremities are warm and well perfused. Some superficial venous varicosities but no edema. No focal musculoskeletal or neurologic findings identified. LABORATORY DATA: Shows a slight elevation of white count, likely due to her prednisone, hemoglobin 11.6, hematocrit 36.1. Chemistries show normal electrolytes and normal renal function. Blood sugar mildly elevated at 191. ALT slightly increased at 38. TSH level is pending. Troponin level is normal. Chest x-ray has not been done on admission. She did have a high-resolution chest CT scan on April 07 demonstrating a moderate amount of posterior and basal interstitial changes but fairly mild. There is a moderate amount of aortic atherosclerosis noted, with prominent calcification in her LAD and diagonal vessels noted as well. IMPRESSION: Paroxysmal symptomatic atrial fibrillation: I suspect that this patient's symptoms of chest pressure simply relate to underlying atrial fibrillation and in view of her normal troponin and prolonged symptoms of chest discomfort do not feel that it likely represents any significant myocardial ischemia. If her rate continues to be moderately elevated tomorrow, then it may be reasonable to add low-dose metoprolol to her current sotalol dose for better rate control. Otherwise, I would simply continue to observe her on 80 mg b.i.d. of sotalol over the weekend. I will ask my partner to follow up with her care and it may be that she could be discharged home after three days if she is feeling well, to return early next week for a JUAN cardioversion with Dr. Saenz. From an anticoagulation standpoint, I would perhaps bump her Coumadin up to 10 mg a day for the next couple of days to get her protime nudged in the right direction. Given her history of recurrent gastrointestinal bleeding, it may be reasonable for her just to continue on warfarin alone instead of warfarin plus aspirin, although I will let Dr. Saenz make that decision next week, and it is reasonable to continue the aspirin for now, particularly since her protime is still in the normal range. Heparin anticoagulation could be considered but I do not really think that bridging is necessary, I simply think more aggressive dosing of her warfarin should suffice. I appreciate the opportunity of seeing this patient in consultation and will ask my partner to follow up tomorrow.
[2016-05-01 18:13] VITALS: BP 109/64; PULSE 60; RESP 20; O2SAT 100
[2016-05-01] MEDS ORDERED: PrednisoLONE 1% 5 mL Ophthalmic Suspension LEFT_EYE ONE (18:50)
[2016-05-01] MEDS ORDERED: PRD5T PO (19:10)
[2016-05-01] MEDS: Heparin 25K Unit/500mL 0.45 NS 25,000 UNIT in IV Premix 1 EACH IV SCH (19:43)
--- NOTE | 2016-05-01 20:17 | NUR ---
Heparin gtt Heparin gtt started at 1000units/hr. Pt required new IV start due to pain in her forearm following the initial start of the gtt. Left forearm IV discontinued. Tip intact. Care ongoing.
[2016-05-01 20:34] VITALS: PULSE 70; RESP 18; O2SAT 98
[2016-05-01] MEDS: Pantoprazole 20 mg ER24 Tablet PO SCH (21:00)
[2016-05-01 21:12] VITALS: BP 130/79; PULSE 110; RESP 18; O2SAT 96
[2016-05-01] MEDS: PrednisoLONE 1% 5 mL Ophthalmic Suspension LEFT_EYE SCH (21:30)
[2016-05-01] MEDS: Timolol-Dorzolamide 10 mL Ophthalmic Solution LEFT_EYE SCH (23:12)
[2016-05-02] VITALS (8 sets, daily range): BP systolic 98–135; BP diastolic 64–89; PULSE 81–109; RESP 12–20; O2SAT 93–96
[2016-05-02 07:04] LABS: INR 1.18 ratio
[2016-05-02] MEDS: PrednisoLONE 1% 5 mL Ophthalmic Suspension LEFT_EYE SCH ×4 (07:30→20:39)
[2016-05-02 08:49] LABS: BASOPHILS % (AUTO) 0.3 % (0-3); EOSINOPHILS % (AUTO) 0.9 % (0-5); MONOCYTES % (AUTO) 11.5 % (4-12); Mean Corpuscular Hemoglobin 31.9 pg (27.0-35.0); Mean Corpuscular Volume 97.5 fL (81-100); NEUTROPHILS % (AUTO) 49.2 % (40-74); Platelet Count 284 bil/L (150-400)
[2016-05-02] MEDS: Timolol-Dorzolamide 10 mL Ophthalmic Solution LEFT_EYE SCH ×2 (09:29→20:39)
[2016-05-02] MEDS: Isosorbide Mononitrate 30 mg ER24 Tablet PO SCH (09:30)
[2016-05-02] MEDS: predniSONE 5 mg Tablet PO SCH (09:30)
[2016-05-02] MEDS: Pantoprazole 20 mg ER24 Tablet PO SCH ×2 (09:33→20:40)
--- NOTE | 2016-05-02 12:48 | PCM.PHAPRO ---
Progress Date of Service: May 02, 2016 Atrial fibrillation. WARFARIN DOSING PER PHARMACY Indication: Afib Pertinent Hx: Aortic Valve Stenosis, HTN INR Goal: 2-3 Additional anticoagulation: HEP GTT DI: SYNTHROID Note: HOME DOSE 2.5 MG DAILY -May 02-Apr 1.00 1.18 ~ 0.18 5 mg 5MG Warf Dose P: Will give one dose of warfarin 5 mg PO tonight Pharmacy will monitor INR/CBC/signs and symptoms of bleeding THANKS! Alisha Cuellar PharmD May 02, 2016 12:47
--- NOTE | 2016-05-02 15:06 | PCM.PNMED ---
Subjective Date of Service May 02, 2016 Subjective Horacio Carmen is an 85-year-old female with a past medical history significant for critical aortic valve stenosis status post bioprosthetic valve replacement, hypertension, hyperlipidemia, polymyalgia rheumatica on chronic steroids, and paroxysmal atrial fibrillation recently started on warfarin within the last week who was sent to [facility] Emergency Department by her dam operator Dr. Saenz for worsening chest pressure and shortness of breath. Hospital day 2 Overnight patient had no acute events This morning patient reports occasionally feeling a few flutters more so with getting up going to the bathroom or moving around. She is also feeling some minimal shortness of breath otherwise is having no headache, abdominal pain, or dizziness. Exam Vital Signs Vital Sign - Last Date Time Temp Pulse Resp B/P Pulse Ox O2 Delivery O2 Flow Rate FiO2 05/02/16 14:43 36.7 109 16 113/72 95 Room Air Intake and Output 05/01/16 05/01/16 05/02/16 Cumulative From/Thru 15:00 23:00 07:00 05/01/16 09:43 - 05/02/16 06:05 Intake Total 536 ml 579 ml 1115 ml Output Total 1000 ml 1400 ml 2400 ml Balance -464 ml -821 ml -1285 ml Intake Oral 536 ml 400 ml 936 ml IV Total 179 ml 179 ml Output Urine Total 1000 ml 1400 ml 2400 ml # Bowel Movements 0 0 0 Exam General: Elderly female lying in bed and in no acute distress, well-developed, well-nourished, appropriately interactive. HEENT: Normocephalic, atraumatic. External ears without defect. Glasses with frosted tape over left lens. Anisocoric due to globe injury of left eye. Anicteric sclerae, moist conjunctivae, and no lid lag. Oropharynx free of erythema and cobble stoning with moist mucosa. Neck: Supple with full range of motion. No jugular venous distension. No lymphadenopathy or thyromegaly. Cardiovascular: Irregularly irregular rhythm, regular rate, without murmurs, rubs, or gallops appreciated Pulmonary: Clear to auscultation bilaterally with no crackles, wheezes, or rhonchi. Normal respiratory effort with no use of accessory muscles. Abdomen: Soft, nontender, nondistended, bowel tones present. No hepatosplenomegaly or masses appreciated. Extremities: No clubbing, cyanosis, or edema. Skin: Normal temperature, turgor, and texture; no rash, ulcers, or subcutaneous nodules appreciated. Neurological: Cranial nerves grossly intact. Psychiatric: Normal mood and affect. Alert and oriented to person, place, and time. Lab and Diagnostics Result Diagram: 05/02/16 0830 05/02/16 0830 X-Rays, CTs and MRIs X-RAY CHEST ONE VIEW, PORTABLE IMPRESSION: No acute cardiopulmonary disease. Dictated by: Ti Alfaro M.D. on 05/01/2016 at 11:10 Approved by: Ti Alfaro M.D. on 05/01/2016 at 11:10 . 12-lead ECG EKG: Atrial fibrillation, heart rate 96, normal axis, LBBB. . Cardiac Echo Impressions Echocardiogram Interpretation Summary: There is mild concentric left ventricular hypertrophy. The ejection fraction is estimated to be 60-65%. Septal motion is consistent with post-operative state. The E/A ratio is reversed, suggesting impaired early relaxation of the left ventricle or a reduced preload state. The right ventricle is normal in size and function. The right ventricular systolic pressure is estimated at 41 mmHg assuming a right atrial pressure of 8 mm Hg. The left atrium is moderately dilated. Right atrial size is normal. There is a bioprosthetic aortic valve. There is trace aortic regurgitation. There is no hemodynamically significant valvular aortic stenosis. There is no other significant valvular heart disease. The aortic root is normal size. Reading Physician:PM . Assessment & Plan Horacio Carmen is an 85-year-old female with a past medical history significant for critical aortic valve stenosis status post bioprosthetic valve replacement, hypertension, hyperlipidemia, polymyalgia rheumatica on chronic steroids, and paroxysmal atrial fibrillation recently started on warfarin within the last week who was sent to [facility] Emergency Department by her dam operator Dr. Saenz for worsening chest pressure and shortness of breath. Hospital day 2 1. Proximal atrial fibrillation, present on admission. Active. - Patient presented with chest pressure and shortness of breath. Patient was found to be in atrial fibrillation with RVR. - Recently started on warfarin with subtherapeutic INR of 1.0. Will continue warfarin with dosing per pharmacy. 10 mg dose recommended by Dr. Fong as patient has been on 2.5 at home for almost 1 week without any increase in her INR. - Started sotalol per the patient's dam operator Dr. Saenz. Continue Sotalol 80 mg twice daily. - Monitor relative QTc interval despite LBBB with EKG 2 hours after each dose is given. EKG in the emergency department showed QTc of 506. Notify Cardiology if QTc post dosing is >500 - TSH 1.830, free T4 1.50 both within normal range - Continue to monitor closely on telemetry. - Ordered echocardiogram TTE at recommendation of her dam operator Dr. Saenz who plans for JUAN cardioversion on 05/05/16. - Start a cardiac heparin gtt per cardiology for probable JUAN cardioversion on 05/05/2016. - Cardiology was consulted and will plan to see the patient. recommendations for care of the patient are appreciated. 2. Chest pressure with shortness of breath, likely secondary to atrial fibrillation with RVR, present on admission. Active. - The patient had a stress test which was within normal limits and echocardiogram as above in 03/31. Will leave to the discretion of cardiology whether these should be repeated. - EKG shows atrial fibrillation with LBBB as above. Does not meet Sgarbossa's criteria indicative for acute ischemia in presence of LBBB. - Continue aspirin 81 mg daily and equivalent of pravastatin 80 mg every night before bedtime. Chronic Problems: Hypertension, chronic. - Continue amlodipine 2.5 mg daily, hydrochlorothiazide 12.5 mg daily, and Imdur 30 mg daily. Hyperlipidemia, chronic. - Continue equivalent of pravastatin 80 mg every night before bedtime. Coronary artery disease status post stent to mid LAD. - Continue aspirin 81 mg daily and equivalent of pravastatin 80 mg every night before bedtime. Hypothyroidism, chronic. - Continue levothyroxine 25 g daily. Polymyalgia rheumatica, chronic. - Continue maintenance dose of prednisone 5 mg daily. Amiodarone pulmonary toxicity, chronic. - Continue maintenance dose of prednisone 5 mg daily for PMR. - Ordered AccuNeb every four hours as needed for shortness of breath. Gastroesophageal reflux disease, chronic. - Continue pantoprazole 20 mg twice daily. History of left eye injury. - Continue home eye drops including: Dorzolamide-Timolol 1 gtt in eye twice a day and prednisolone Acetate 5 Ml Drops 1 drop left eye 4 times daily. Peripheral neuropathy. - Not medically treated. PRN antiemetics: Zofran and Maalox. PRN bowel regimen: Senna and MiraLAX. PRN analgesics: Tylenol. High risk meds include warfarin, heparin drip Patient is admitted under inpatient status with expected length of stay greater than 2 midnights due to severity of presenting symptoms, risk of adverse event, and complexity of treatment plan. . Pain Evaluation: Adequate Pain Control GI Prophylaxis: Proton Pump Inhibitor VTE Prophylaxis: Other (heparin GTT bridged to warfarin) Resuscitation Status: DNR/DNI:Do Not Resuscitate/Intubate Attending Statement The patient was seen and examined together with Dr. Hdez on 05-02-16 and I agree with the history, exam and plan as outlined in the note above. Loida Hdez DO May 02, 2016 15:06 Micah Angelo MD May 03, 2016 07:42
[2016-05-02] MEDS ORDERED: Warfarin 5 MG, Warfarin 2.5 MG PO ONE ×2 (17:00)
--- NOTE | 2016-05-02 17:24 | DRSVH ---
[facility] [address] [place] [address] Echocardiogram Report Name: GLEN PERERA MStudy Date: 05/02/2016 Height: 65 in Hospital Exam Location: [facility] Weight: 160 lb Gender: Female BSA: 1.8 m2 : 1930 Age: 85 yrs BP: 135/89 mmHg Reason For Study: CHEST PAIN, AFIB, S/P TAVR Ordering Physician: HOSPITALIST [facility] Performed By: Felice Bonilla Referring Physician: Jorge Zimmerman Interpretation Summary The patient was in atrial fibrillation with rapid ventricular response during the exam with a heart rate exceeding 100 bpm. The left ventricle is normal in size. Left ventricular systolic function is normal. The ejection fraction is estimated to be 60-65%. Septal motion is consistent with conduction abnormality. The right ventricle is normal size. Right ventricular systolic function is borderline reduced. The right ventricular systolic pressure is estimated at 28 mmHg assuming a right atrial pressure of 3 mm Hg. Compared to the prior echo exam, there has been a decrease in the severity of pulmonary hypertension. The left atrium is moderately dilated. Right atrial size is normal. There is moderate mitral regurgitation. Compared to the prior echo study, there has been an increase in the severity of mitral regurgitation. There is moderate tricuspid regurgitation. Compared to the prior echo exam, there has been an increase in TR severity. The aortic root is normal size. Procedure: A two-dimensional transthoracic echocardiogram with color flow and Doppler was performed. The study quality was technically adequate. Comparison is made with the echocardiogram of 04/05/15. The suprasternal notch views were difficult to obtain and are suboptimal in quality. The patient was in atrial fibrillation with rapid ventricular response during the exam with a heart rate exceeding 100 bpm. The patient had a heart rate of 90-118 beats per minute. Left Ventricle: The left ventricle is normal in size. There is normal left ventricular wall thickness. Proximal septal thickening is noted. Left ventricular systolic function is normal. The ejection fraction is estimated to be 60-65%. Septal motion is consistent with conduction abnormality. Right Ventricle: The right ventricle is normal size. Right ventricular systolic function is borderline reduced. Atria: The left atrium is moderately dilated. Right atrial size is normal. The interatrial septum is intact with no evidence for an atrial septal defect. Mitral Valve: There is moderate mitral annular calcification. The mitral valve chordae are thickened and/or calcified. There is moderate mitral regurgitation. Compared to the prior echo study, there has been an increase in the severity of mitral regurgitation. Aortic Valve: There is a bioprosthetic aortic valve. The prosthetic aortic valve is well-seated. There is trace aortic regurgitation. Tricuspid Valve: The tricuspid valve is normal in structure and function. There is moderate tricuspid regurgitation. Compared to the prior echo exam, there has been an increase in TR severity. The right ventricular systolic pressure is estimated at 28 mmHg assuming a right atrial pressure of 3 mm Hg. Compared to the prior echo exam, there has been a decrease in the severity of pulmonary hypertension. Pulmonic Valve: The pulmonic valve is normal in structure and function. There is trace pulmonic regurgitation. Great Vessels: The aortic root is normal size. The dimensions of the ascending aorta are normal. The pulmonary artery is normal size. The IVC is of normal diameter and collapses greater than 50% with a sniff. This suggests a low right atrial pressure of 3 mm Hg. Pericardium/ Pleura There is no pericardial effusion. There is no pleural effusion. MMode/2D Measurements & Calculations LVIDd: 4.2 cm LA dimension: 4.8 cm RA long axis LVOT diam: 2.0 cm LVIDs: 2.5 cm Ao root diam FS: 41.5 % LA A2 area: 22.9 cm RA area EPSS: 0.70 cm LA A4 area: 24.1 cm asc Aorta Diam IVSd: 0.90 cm LA length (vol) : 17.3 cm LVPWd: 1.0 cm RA vol Ao Arch Diam (Prox LA vol: 77.5 ml : 45.8 ml Trans): 2.3 cm LA vol index RA : 25.5 mm2 IVC diam: 1.5 cm LV zavaleta. diameter/BSA LV sys. diameter/BSA RVD1 (basal) RVD2 (mid): 2.8 cm (cm/m^2): 2.3 (cm/m^2): 1.4 Doppler Measurements & Calculations Ao V2 max MV E max pop MV E/A: 121.3 TR max pop : 166.1 cm/sec : 108.6 cm/sec Med Peak E' Pop : 247.2 cm/sec Ao max PG MV A max pop TR max PG : 11.1 mmHg : 0.90 cm/sec E/E' med: 16.8 : 24.5 mmHg Ao mean PG PA V2 max MR ERO: 0.14 cm2 : 68.0 cm/sec LVOT Max Pop PA mean PG : 85.3 cm/sec : 0.98 mmHg PA Accel Time STANLEY(I,D): 1.5 cm : 0.05 sec sev ratio MV dec time Ao V2 mean LV V1 max PG MR flow rate : 0.16 sec : 128.6 cm/sec : 64.0 cm3/sec Ao V2 VTI: 34.6 cm LV V1 VTI MR PISA radius STANLEY(V,D): 1.7 cm2 : 15.8 cm PA V2 mean STANLEY indexed to BSA : 46.8 cm/sec (cm^2/m^2): 0.83 PA pr(Accel) : 45.7 mmHg Reading Physician:KEN
[2016-05-03] VITALS (10 sets, daily range): BP systolic 104–134; BP diastolic 61–79; PULSE 62–106; RESP 14–20; O2SAT 95–98
--- NOTE | 2016-05-03 06:35 | NUR ---
Activity Ambulating in room with SBA. Slow steady gait without c/o CP, SOB dizziness or any other symptoms. Currently resting without any complaints.
[2016-05-03 07:50] LABS: BASOPHILS % (AUTO) 0.3 % (0-3); EOSINOPHILS % (AUTO) 1.4 % (0-5); MONOCYTES % (AUTO) 11.3 % (4-12); Mean Corpuscular Hemoglobin 32.2 pg (27.0-35.0); Mean Corpuscular Volume 98.7 fL (81-100); NEUTROPHILS % (AUTO) 46.1 % (40-74); Platelet Count 267 bil/L (150-400)
[2016-05-03 08:27] LABS: INR 1.85 ratio
[2016-05-03] MEDS: PrednisoLONE 1% 5 mL Ophthalmic Suspension LEFT_EYE SCH ×4 (08:50→20:33)
[2016-05-03] MEDS: Timolol-Dorzolamide 10 mL Ophthalmic Solution LEFT_EYE SCH ×2 (08:51→20:36)
[2016-05-03] MEDS: Pantoprazole 20 mg ER24 Tablet PO SCH ×2 (08:52→20:34)
[2016-05-03] MEDS: predniSONE 5 mg Tablet PO SCH (08:52)
[2016-05-03] MEDS: Isosorbide Mononitrate 30 mg ER24 Tablet PO SCH (08:52)
--- NOTE | 2016-05-03 09:05 | NUR ---
[place] signed KRISTINA Barnett
--- NOTE | 2016-05-03 09:38 | PCM.PHAPRO ---
Progress Date of Service: May 03, 2016 Requesting Provider: Loida Hdez DO Atrial fibrillation. INR GOAL 2-3 warfarin dose is 4mg today Olaf Hilton [facility] May 03, 2016 09:38
--- NOTE | 2016-05-03 13:45 | NUR ---
Social Work: Initial Assessment Data: Pt is an 85 y/o female admitted for A fib, CP. Pt's PCP is Dr Zimmerman, pt's insurance is Medicare with [employer]. Pt readmit score is 3, high. EMR reviewed. Pt lives alone in a single story home where she only uses a walking stick when outdoors. Pt states she does not drive, has hx with [facility], no hx at SNF, no LTC or VA benefits, and is not a caregiver. Pt states both of her daughters are her DPOA's and she has and AD, VALIDATION CONSULTANT requested a copy for hospital. Pt states she has been up and independent in the room. VALIDATION CONSULTANT will continue to follow for possible HH need. Assessment: Pt who is independent at baseline. Plan: Pt will d/c home via POV when medically stable. VALIDATION CONSULTANT will continue to follow for possible HH need. KRISTINA Barnett Addendum: 05/03/16 at 1348 by JONO MORRIS Amended: Links added.
--- NOTE | 2016-05-03 15:43 | PCM.PNMED ---
Subjective Date of Service May 03, 2016 Subjective 85-year-old female with a past medical history significant for critical aortic valve stenosis status post bioprosthetic valve replacement, hypertension, hyperlipidemia, polymyalgia rheumatica on chronic steroids, and paroxysmal atrial fibrillation recently started on warfarin within the last week who was sent to [facility] Emergency Department by her industrial truck mechanic Dr. Saenz for worsening chest pressure and shortness of breath. Hospital day 3 Patient did well over night without any acute events. This morning patient reports feeling less flutters in her chest than before with no headache, dizziness, or shortness of breath. She does report having itchy ears and throat. Normal bowel and bladder habits. Exam Vital Signs Vital Sign - Last Date Time Temp Pulse Resp B/P Pulse Ox O2 Delivery O2 Flow Rate FiO2 05/03/16 05:50 103 05/03/16 05:48 36.7 16 112/71 96 Room Air Intake and Output 05/02/16 05/02/16 05/03/16 Cumulative From/Thru 15:00 23:00 07:00 05/01/16 09:43 - 05/03/16 06:25 Intake Total 800 ml 447 ml 2362 ml Output Total 400 ml 800 ml 3600 ml Balance 400 ml -353 ml -1238 ml Intake Oral 800 ml 400 ml 2136 ml IV Total 47 ml 226 ml Output Urine Total 400 ml 800 ml 3600 ml # Voids 1 1 # Bowel Movements 0 0 Exam General: Elderly female sitting up in chair in no acute distress, well-developed , well-nourished, appropriately interactive. HEENT: Normocephalic, atraumatic. External ears without defect. Glasses with frosted tape over left lens. Anisocoric due to globe injury of left eye. Anicteric sclerae, moist conjunctivae, and no lid lag. Oropharynx free of erythema with moist mucosa. Neck: Supple with full range of motion. No jugular venous distension. No lymphadenopathy or thyromegaly. Cardiovascular: Irregularly irregular rhythm, regular rate, without murmurs, rubs, or gallops appreciated Pulmonary: Clear to auscultation bilaterally with no crackles, wheezes, or rhonchi. Normal respiratory effort with no use of accessory muscles. Abdomen: Soft, nontender, nondistended, bowel tones present. No hepatosplenomegaly or masses appreciated. Extremities: No clubbing, cyanosis, or edema. Skin: Normal temperature, turgor, and texture; no rash, ulcers, or subcutaneous nodules appreciated. Neurological: Cranial nerves grossly intact. Psychiatric: Normal mood and affect. Alert and oriented to person, place, and time. Lab and Diagnostics Result Diagram: 05/02/1630 05/02/1630 X-Rays, CTs and MRIs X-RAY CHEST ONE VIEW, PORTABLE IMPRESSION: No acute cardiopulmonary disease. Dictated by: Ti Alfaro M.D. on 05/01/2016 at 11:10 Approved by: Ti Alfaro M.D. on 05/01/2016 at 11:10 . 12-lead ECG EKG: Atrial fibrillation, heart rate 96, normal axis, LBBB. . Cardiac Echo Impressions Echocardiogram Interpretation Summary: There is mild concentric left ventricular hypertrophy. The ejection fraction is estimated to be 60-65%. Septal motion is consistent with post-operative state. The E/A ratio is reversed, suggesting impaired early relaxation of the left ventricle or a reduced preload state. The right ventricle is normal in size and function. The right ventricular systolic pressure is estimated at 41 mmHg assuming a right atrial pressure of 8 mm Hg. The left atrium is moderately dilated. Right atrial size is normal. There is a bioprosthetic aortic valve. There is trace aortic regurgitation. There is no hemodynamically significant valvular aortic stenosis. There is no other significant valvular heart disease. The aortic root is normal size. Reading Physician:PM . Assessment & Plan 85-year-old female with a past medical history significant for critical aortic valve stenosis status post bioprosthetic valve replacement, hypertension, hyperlipidemia, polymyalgia rheumatica on chronic steroids, and paroxysmal atrial fibrillation recently started on warfarin within the last week who was sent to [facility] Emergency Department by her industrial truck mechanic Dr. Saenz for worsening chest pressure and shortness of breath. Hospital day 3 1. Proximal atrial fibrillation, present on admission. Active. - Patient presented with chest pressure and shortness of breath. Patient was found to be in atrial fibrillation with RVR. - Recently started on warfarin with subtherapeutic INR of 1.0. Will continue warfarin with dosing per pharmacy. - Started sotalol per the patient's industrial truck mechanic Dr. Saenz. Continue Sotalol 80 mg twice daily. - Monitor relative QTc interval despite LBBB with EKG 2 hours after each dose is given. EKG in the emergency department showed QTc of 506. Notify Cardiology if QTc post dosing is >555 which is 15% greater than baseline. - TSH 1.830, free T4 1.50 both within normal range - Continue to monitor closely on telemetry. - Ordered echocardiogram TTE at recommendation of her industrial truck mechanic Dr. Saenz who plans for JUAN cardioversion on 05/05/16. - Start a cardiac heparin gtt per cardiology for probable JUAN cardioversion on 05/05/2016. - Cardiology was consulted and following the patient. recommendations for care of the patient are appreciated. 2. Chest pressure with shortness of breath, likely secondary to atrial fibrillation with RVR, present on admission. Active. - The patient had a stress test which was within normal limits and echocardiogram as above in 03/31. Will leave to the discretion of cardiology whether these should be repeated. - EKG shows atrial fibrillation with LBBB as above. Does not meet Sgarbossa's criteria indicative for acute ischemia in presence of LBBB. - Continue aspirin 81 mg daily and equivalent of pravastatin 80 mg every night before bedtime. Chronic Problems: Hypertension, chronic. - Continue amlodipine 2.5 mg daily, hydrochlorothiazide 12.5 mg daily, and Imdur 30 mg daily. Hyperlipidemia, chronic. - Continue equivalent of pravastatin 80 mg every night before bedtime. Coronary artery disease status post stent to mid LAD. - Continue aspirin 81 mg daily and equivalent of pravastatin 80 mg every night before bedtime. Hypothyroidism, chronic. - Continue levothyroxine 25 g daily. - TSH 1.830, free T4 1.50 - To be managed outpatient, recommend dose reduction as this patient with A fib would benefit from less thyroid stimulation measured with a TSH in the high normal range and a Free T4 in the low normal range. Polymyalgia rheumatica, chronic. - Continue maintenance dose of prednisone 5 mg daily. Amiodarone pulmonary toxicity, chronic. - Continue maintenance dose of prednisone 5 mg daily for PMR. - Ordered AccuNeb every four hours as needed for shortness of breath. Gastroesophageal reflux disease, chronic. - Continue pantoprazole 20 mg twice daily. History of left eye injury. - Continue home eye drops including: Dorzolamide-Timolol 1 gtt in eye twice a day and prednisolone Acetate 5 Ml Drops 1 drop left eye 4 times daily. Peripheral neuropathy. - Not medically treated. PRN antiemetics: Zofran and Maalox. PRN bowel regimen: Senna and MiraLAX. PRN analgesics: Tylenol. High risk meds include warfarin, heparin drip Patient is admitted under inpatient status with expected length of stay greater than 2 midnights due to severity of presenting symptoms, risk of adverse event, and complexity of treatment plan. . Pain Evaluation: Adequate Pain Control GI Prophylaxis: Proton Pump Inhibitor VTE Prophylaxis: Other (heparin GTT bridged to warfarin) Resuscitation Status: DNR/DNI:Do Not Resuscitate/Intubate Attending Statement The patient was seen and examined together with Dr. Hdez on 05-03-16 and I agree with the history, exam and plan as outlined in the note above. Loida Hdez DO May 03, 2016 06:59 Micah Angelo MD May 04, 2016 15:24
--- NOTE | 2016-05-03 17:01 | PCM.PNCARD ---
Subjective Date of service May 03, 2016 Chief Complaint Symptomatic atrial fibrillation Subjective: CONSTITUTIONAL: Negative for fever, weight loss or weight gain. HEENT: Eyes: Negative for glaucoma or cataracts. Ears: Negative pain or loss of hearing. Nose: Negative for nasal congestion. Negative for rhinorrhea or postnasal drip. Mouth: Negative for false teeth. Throat: Negative for masses or hoarseness. Negative for snoring. CARDIOVASCULAR: Negative for chest pain or palpitations, near syncope, syncope, PND, or orthopnea. RESPIRATORY: Shortness of breath on exertion but no PND or orthopnea.. GASTROINTESTINAL: Negative for nausea, vomiting, diarrhea or heartburn. GENITOURINARY: Negative for dysuria. MUSCULOSKELETAL: Negative for osteoarthritis. SKIN: Negative for rashes. NEUROLOGIC: Negative for headaches, blurry vision, CVA, mental status changes. PSYCHIATRIC: Negative for depression. Negative for daytime sleepiness or insomnia. ENDOCRINE: Negative for diabetes or thyroid abnormalities. HEMATOLOGIC: Negative for anemia or blood dyscrasias. Exam Vital Signs Vital Sign - Last Date Time Temp Pulse Resp B/P Pulse Ox O2 Delivery O2 Flow Rate FiO2 05/03/16 14:39 106 18 96 05/03/16 12:26 36.4 105/61 Room Air Intake and Output 05/02/16 05/02/16 05/03/16 Cumulative From/Thru 15:00 23:00 07:00 05/01/16 09:43 - 05/03/16 06:25 Intake Total 800 ml 447 ml 2362 ml Output Total 400 ml 800 ml 3600 ml Balance 400 ml -353 ml -1238 ml Intake Oral 800 ml 400 ml 2136 ml IV Total 47 ml 226 ml Output Urine Total 400 ml 800 ml 3600 ml # Voids 1 1 # Bowel Movements 0 0 General: Pleasant Cooperative Skin: Warm & dry to touch Eye: EOMS intact Neck: No JVD Chest: Clear auscultation w/o rales/wheeze Cardiac: Irregularly irregular rhythm Neurological: Alert & oriented No gross motor or sensory deficits Lab and Diagnostics Labs CBC Test 05/03/16 06:35 White Blood Count 9.1th/mm3 (3.8-10.1) Red Blood Count 3.76mil/mm3 (3.90-5.20) Hemoglobin 12.1g/dL (12.0-15.6) Hematocrit 37.1% (35.0-46.0) Mean Corpuscular Volume 98.7fL (81-100) Mean Corpuscular Hemoglobin 32.2pg (27.0-35.0) Mean Corpuscular Hemoglobin Concent 32.6% (32.0-37.0) Red Cell Distribution Width 14.2% (12.3-15.4) Platelet Count 267bil/L (150-400) Neutrophils (%) (Auto) 46.1% (40-74) Lymphocytes (%) (Auto) 40.7% (14-46) Monocytes (%) (Auto) 11.3% (4-12) Eosinophils (%) (Auto) 1.4% (0-5) Basophils (%) (Auto) 0.3% (0-3) CMP Test 05/01/16 10:00 05/02/16 08:30 05/03/16 06:35 Magnesium Level 1.8mg/dL Troponin T 0.010ug/L Thyroid Stimulating Hormone (TSH) 1.830uIU/mL Free Thyroxine 1.50ng/dL Sodium Level 139mEq/L Potassium Level 4.0mEq/L Chloride Level 102mEq/L Carbon Dioxide Level 27mmol/L Blood Urea Nitrogen 25mg/dL Creatinine 0.68mg/dL Estimat Glomerular Filtration Rate 118mL/min Glucose Level 85mg/dL Calcium Level 8.7mg/dL Total Bilirubin 0.2mg/dL Aspartate Amino Transf (AST/SGOT) 38U/L Alanine Aminotransferase (ALT/SGPT) 71U/L Alkaline Phosphatase 51U/L Total Protein 6.6g/dL Albumin 3.5g/dL Result Diagram: 05/03/1663405/03/16634 12-lead ECG EKG shows no significant QTc prolongation from baseline. Assessment & Plan Problems: (1) Atrial fibrillation Qualifiers: Atrial fibrillation type: chronic Qualified Code: I48.2 - Chronic atrial fibrillation Plan: The patient appears to be tolerating her low-dose sotalol at 80 mg twice a day. If her EKG continues to show stability of her QTc interval then I would recommend to discharge her tomorrow and Dr. Saenz will schedule an outpatient cardioversion with transesophageal echocardiogram sometime next week. Status: Chronic ICD Code: I48.91 Pain Evaluation: Adequate Pain Control GI Prophylaxis: Proton Pump Inhibitor VTE Prophylaxis: Other (heparin GTT bridged to warfarin) Resuscitation Status: DNR/DNI:Do Not Resuscitate/Intubate Time spent 15 minutes Anshul Rai MD May 03, 2016 17:01
--- NOTE | 2016-05-03 17:35 | NUR ---
Telemetry Update: Sinus Rhythm Patient has been Afib 100-120s with an IVCD. Patient converted to Sinus Rhythm in the 60s with a 3s conversion pause. ZEE Boss aware.
--- NOTE | 2016-05-03 19:35 | NUR ---
Conversion to sinus rhythm Pt. converted to sinus rhythm at 1726 today with 3 sec. conversion pause. Vitals stable, BP 104/63/, HR 62. Pt. continues to be in sinus rhythm. MD notified. Will continue to monitor.
--- NOTE | 2016-05-04 00:13 | NUR ---
ACTIVTY patient ambulated with bathroom, sba. steady gait denies dyspnea. patient states repeatedly "i'd like to go home tomorrow." given emotional support. discussed her living situation.
[2016-05-04 01:08] VITALS: BP 110/65; PULSE 61; RESP 16; O2SAT 96
[2016-05-04 04:25] VITALS: BP 125/61; PULSE 103; RESP 20; O2SAT 93
[2016-05-04 06:24] VITALS: PULSE 103
[2016-05-04] MEDS: Heparin 25K Unit/500mL 0.45 NS 25,000 UNIT in IV Premix 1 EACH IV SCH (06:52)
[2016-05-04 07:48] LABS: Mean Corpuscular Hemoglobin 31.7 pg (27.0-35.0); Mean Corpuscular Volume 97.4 fL (81-100)
[2016-05-04 07:59] LABS: INR 2.22 ratio
--- NOTE | 2016-05-04 08:38 | PCM.PNCARD ---
Subjective Date of service May 04, 2016 Chief Complaint Symptomatic atrial fibrillation 11-point ROS: 11-point Review of Systems negative Exam Vital Signs Vital Sign - Last Date Time Temp Pulse Resp B/P Pulse Ox O2 Delivery O2 Flow Rate FiO2 05/04/16 06:24 103 05/04/16 04:25 36.7 20 125/61 93 Room Air Intake and Output 05/03/16 05/03/16 05/04/16 Cumulative From/Thru 15:00 23:00 07:00 05/01/16 09:43 - 05/04/16 06:08 Intake Total 1453 ml 600 ml 4415 ml Output Total 1150 ml 500 ml 5250 ml Balance 303 ml 100 ml -835 ml Intake Oral 1236 ml 450 ml 3822 ml IV Total 217 ml 150 ml 593 ml Output Urine Total 1150 ml 500 ml 5250 ml # Voids 2 3 # Bowel Movements 2 0 2 General: Pleasant Cooperative Lab and Diagnostics Labs CBC Test 05/03/16 06:35 05/04/16 07:03 Neutrophils (%) (Auto) 46.1% (40-74) Lymphocytes (%) (Auto) 40.7% (14-46) Monocytes (%) (Auto) 11.3% (4-12) Eosinophils (%) (Auto) 1.4% (0-5) Basophils (%) (Auto) 0.3% (0-3) White Blood Count 9.6th/mm3 (3.8-10.1) Red Blood Count 3.88mil/mm3 (3.90-5.20) Hemoglobin 12.3g/dL (12.0-15.6) Hematocrit 37.8% (35.0-46.0) Mean Corpuscular Volume 97.4fL (81-100) Mean Corpuscular Hemoglobin 31.7pg (27.0-35.0) Mean Corpuscular Hemoglobin Concent 32.5% (32.0-37.0) Red Cell Distribution Width 14.0% (12.3-15.4) Platelet Count 277bil/L (150-400) CMP Test 05/01/16 10:00 05/02/16 08:30 05/04/16 07:03 Magnesium Level 1.8mg/dL Troponin T 0.010ug/L Thyroid Stimulating Hormone (TSH) 1.830uIU/mL Free Thyroxine 1.50ng/dL Sodium Level 140mEq/L Potassium Level 4.2mEq/L Chloride Level 101mEq/L Carbon Dioxide Level 25mmol/L Blood Urea Nitrogen 25mg/dL Creatinine 0.66mg/dL Estimat Glomerular Filtration Rate 122mL/min Glucose Level 115mg/dL Calcium Level 9.1mg/dL Total Bilirubin 0.2mg/dL Aspartate Amino Transf (AST/SGOT) 36U/L Alanine Aminotransferase (ALT/SGPT) 75U/L Alkaline Phosphatase 59U/L Total Protein 7.1g/dL Albumin 4.1g/dL Result Diagram: 05/04/1670205/04/16702 Assessment & Plan Problems: (1) Atrial fibrillation Qualifiers: Atrial fibrillation type: chronic Qualified Code: I48.2 - Chronic atrial fibrillation Plan: Patient can be discharged home if today's EKG shows stable QTc interval. She has converted to sinus rhythm with a mild conversion pause. Continue with Sotalol 80 mg BID for now. I will notify Dr. Saenz that she will not need JUAN/DCCV next week but she will need close f/u with INR at our anticoagulation clinic next week. I will arrange this. INR today is 2.22, Continue with warfarin. She will not need her pre-admission metoprolol since she is borderline bradycardic with Sotalol as is. Status: Chronic ICD Code: I48.91 Pain Evaluation: Adequate Pain Control GI Prophylaxis: Proton Pump Inhibitor VTE Prophylaxis: Other (heparin GTT bridged to warfarin) Resuscitation Status: DNR/DNI:Do Not Resuscitate/Intubate Time spent 15 minutes copies to: Niurka Saenz MD, Oscar J MD May 04, 2016 08:38
--- NOTE | 2016-05-04 08:56 | PCM.PHAPRO ---
Progress Date of Service: May 04, 2016 Requesting Provider: Loida Hdez DO Symptomatic atrial fibrillation inr goal 2-3 continue 4mg warfarin today on hep gtt [facility] May 04, 2016 08:56
[2016-05-04] MEDS: Isosorbide Mononitrate 30 mg ER24 Tablet PO SCH (09:07)
[2016-05-04] MEDS: Pantoprazole 20 mg ER24 Tablet PO SCH (09:07)
[2016-05-04] MEDS: predniSONE 5 mg Tablet PO SCH (09:08)
[2016-05-04] MEDS: PrednisoLONE 1% 5 mL Ophthalmic Suspension LEFT_EYE SCH (09:08)
[2016-05-04] MEDS: Timolol-Dorzolamide 10 mL Ophthalmic Solution LEFT_EYE SCH (09:08)
[2016-05-04 09:15] LABS: INR 2.21 ratio
[2016-05-04 09:35] VITALS: BP 131/70; PULSE 60; RESP 18; O2SAT 96
[2016-05-04] MEDS ORDERED: METO25TA6 PO (09:40)
[2016-05-04] MEDS ORDERED: ASPI-973 PO (09:41)
[2016-05-04 10:15] VITALS: PULSE 60
--- NOTE | 2016-05-04 11:24 | PCM.DIMED ---
Kristin Almodovar DO 05/04/16 1053: Discharge Instructions Date of Service May 04, 2016 Dates of Hospitalization May 01, 2016 at 11:24 Discharge Diagnosis Discharge Diagnosis Proximal atrial fibrillation, present on admission. Resolved. Chest pressure with shortness of breath, likely secondary to atrial fibrillation with RVR, present on admission. Resolved. Hypertension, chronic. Hyperlipidemia, chronic. Coronary artery disease status post stent to mid LAD, chronic. Hypothyroidism, chronic. Polymyalgia rheumatica, chronic. Amiodarone pulmonary toxicity, chronic. Gastroesophageal reflux disease, chronic. History of left eye injury. Peripheral neuropathy. . Medication Instructions Continued medications: Albuterol 2 puffs inhaled every 4 hours as needed for shortness of breath. Amlodipine 2.5 mg daily. Clopidogrel 75 mg daily (recently discontinued). Dorzolamide-Timolol 1 gtt in eye twice a day. Hydrochlorothiazide 12.5 g daily. Isosorbide mononitrate ER 30 mg daily. Levothyroxine 25 g daily. Metoprolol tartrate 12.5 mg twice a day. Nitroglycerin 0.4 MG SL every five minutes as needed for chest pain. Pantoprazole DR 20 mg twice a day. Pravastatin 80 mg daily. Prednisolone Acetate 5 Ml Drops 1 drop left eye 4 times daily. New medications: Sotalol 80 mg twice a day. Warfarin sodium 4 mg daily. Discontinued medications: Warfarin sodium 2.5 mg daily. . Diet Low fat, Low Sodium, Heart Healthy Activity Limited until seen by PCP Call your provider Shortness of breath, Chest pain, Weakness (unilateral) Patient Instructions Follow-up plan Please [facility]-up with [facility] within the next week to have your INR checked. You will need to follow up with your diet aid, Dr. Saenz, in the next 2-4 weeks. You should receive a phone call regarding both of these appointments. If you do not hear from the [facility] or your diet aid please call their office. . Follow-up Provider: Niurka Saenz MD Follow-up with PCP in: 2 weeks Micah Angelo MD 05/05/16 0849: Discharge Instructions Attending's Statement The patient was seen and examined together with Dr. Almodovar on 05-04-16 and I agree with the history, exam and plan as outlined in the note above. Kristin Almodovar DO May 04, 2016 10:53 Micah Angelo MD May 05, 2016 08:49
[2016-05-04] MEDS ORDERED: WARF2.5T82 PO (11:29)
[2016-05-04] MEDS ORDERED: BET80 PO (11:29)
--- NOTE | 2016-05-04 11:38 | PCM.DC.MED ---
Discharge Summary Date of Service May 04, 2016 Dates of Hospitalization Date of Hospital Admission May 01, 2016 at 11:24 Date of Discharge: May 04, 2016 Providers: Admitting Physician: Micah Angelo MD Primary Care Physician: Jorge Zimmerman MD Attending Physician: Micah Angelo MD Diagnosis at Time of Discharge Diagnosis at Time of Discharge Proximal atrial fibrillation, present on admission. Resolved. Chest pressure with shortness of breath, likely secondary to atrial fibrillation with RVR, present on admission. Resolved. Hypertension, chronic. Hyperlipidemia, chronic. Coronary artery disease status post stent to mid LAD, chronic. Hypothyroidism, chronic. Polymyalgia rheumatica, chronic. Amiodarone pulmonary toxicity, chronic. Gastroesophageal reflux disease, chronic. History of left eye injury. Peripheral neuropathy. . Consultations Cardiology, Dr. Fong. Procedures XRay, CTs & MRIs X-RAY CHEST ONE VIEW, PORTABLE IMPRESSION: No acute cardiopulmonary disease. Dictated by: Ti Alfaro M.D. on 05/01/2016 at 11:10 Approved by: Ti Alfaro M.D. on 05/01/2016 at 11:10 . ECG 12 Lead EKG: Atrial fibrillation, heart rate 96, normal axis, LBBB. . Cardiac Echo Impression Echocardiogram Interpretation Summary: There is mild concentric left ventricular hypertrophy. The ejection fraction is estimated to be 60-65%. Septal motion is consistent with post-operative state. The E/A ratio is reversed, suggesting impaired early relaxation of the left ventricle or a reduced preload state. The right ventricle is normal in size and function. The right ventricular systolic pressure is estimated at 41 mmHg assuming a right atrial pressure of 8 mm Hg. The left atrium is moderately dilated. Right atrial size is normal. There is a bioprosthetic aortic valve. There is trace aortic regurgitation. There is no hemodynamically significant valvular aortic stenosis. There is no other significant valvular heart disease. The aortic root is normal size. Reading Physician:PM . Brief History Per history of present illness on 05/01/2016: Horacio Carmen is an 85-year-old female with a past medical history significant for critical aortic valve stenosis status post bioprosthetic valve replacement, hypertension, hyperlipidemia, polymyalgia rheumatica on chronic steroids, and paroxysmal atrial fibrillation recently started on warfarin within the last week who was sent to [facility] Emergency Department by her plating engineer Dr. Carter for worsening chest pressure and shortness of breath. The chest pressure has been constant and started last night. She reports it wasn't getting better, therefore, she called her cardiologists office to get it this morning. She endorses associated heaviness, breathlessness , and palpitations. The chest pressure is substernal and does not radiate. She has had this years ago for which she was cardioverted for. The patient has been in atrial fibrillation for the last 10 days and was sent to the hospital to be started on sotalol. She denies headache, double vision, lightheadedness, abdominal pain, extremity pain, nausea, vomiting, fever, chills or lower extremity swelling. She has taken all of her prescribed medications this morning. Vital signs in the ER: Temperature 36.8. Pulse 126. Respiratory rate 25. Blood pressure 140/57. Pulse ox 95% room air. She was given ASA 324 mg x 1, Zofran 4 mg IV x 1 and Sotalol 80 mg x 1. Registered Nurse Surgical Services is Dr. Carter. PCP is Dr. Ayon . Hospital Course Lanette Carmen is an 85-year-old female with a past medical history significant for critical aortic valve stenosis status post bioprosthetic valve replacement, hypertension, hyperlipidemia, polymyalgia rheumatica on chronic steroids, and paroxysmal atrial fibrillation recently started on warfarin within the last week who was sent to [facility] Emergency Department by her plating engineer Dr. Carter for worsening chest pressure and shortness of breath. Hospital day #4. 1. Proximal atrial fibrillation, present on admission. Resolved. - Patient presented with chest pressure and shortness of breath. Patient was found to be in atrial fibrillation with RVR. - Recently started on warfarin with subtherapeutic INR of 1.0. Continued warfarin with dosing per pharmacy. Discharged on warfarin 4 mg daily with close follow-up with [facility]. - Started sotalol per the patient's plating engineer Dr. Carter. Continue Sotalol 80 mg twice daily. - Monitored relative QTc interval despite LBBB with EKG 2 hours after each dose is given. EKG in the emergency department showed QTc of 506. Notify Cardiology if QTc post dosing is >555 which is 15% greater than baseline. - TSH 1.830, free T4 1.50 both within normal range - Continued to monitor closely on telemetry. - Echocardiogram . - Continued a cardiac heparin gtt until time of discharge.. - Cardiology was consulted and followed the patient throughout her hospitalization. We appreciate their recommendations and care of the patient. 2. Chest pressure with shortness of breath, likely secondary to atrial fibrillation with RVR, present on admission. Resolved. - The patient had a stress test which was within normal limits and echocardiogram as above in 03/31. - EKG showed atrial fibrillation with LBBB as above. Does not meet Sgarbossa's criteria indicative for acute ischemia in presence of LBBB. - Continued aspirin 81 mg daily and equivalent of pravastatin 80 mg every night before bedtime. Chronic Problems: Hypertension, chronic. - Continued amlodipine 2.5 mg daily, hydrochlorothiazide 12.5 mg daily, and Imdur 30 mg daily. Hyperlipidemia, chronic. - Continued equivalent of pravastatin 80 mg every night before bedtime. Coronary artery disease status post stent to mid LAD. - Continued aspirin 81 mg daily and equivalent of pravastatin 80 mg every night before bedtime. Hypothyroidism, chronic. - Continued levothyroxine 25 g daily. - TSH 1.830, free T4 1.50 - To be managed outpatient at discretion of PCP and plating engineer. Would recommend dose reduction as this patient with A. fib would benefit from less thyroid stimulation measured with a TSH in the high normal range and a Free T4 in the low normal range. Polymyalgia rheumatica, chronic. - Continued maintenance dose of prednisone 5 mg daily. Amiodarone pulmonary toxicity, chronic. - Continued maintenance dose of prednisone 5 mg daily for PMR. - Continued AccuNeb every four hours as needed for shortness of breath. Gastroesophageal reflux disease, chronic. - Continued pantoprazole 20 mg twice daily. History of left eye injury. - Continued home eye drops including: Dorzolamide-Timolol 1 gtt in eye twice a day and prednisolone Acetate 5 Ml Drops 1 drop left eye 4 times daily. Peripheral neuropathy. - Not medically treated. . Exam Vital Signs (Last) Date Time Temp Pulse Resp B/P Pulse Ox O2 Delivery O2 Flow Rate FiO2 05/04/16 10:15 60 05/04/16 09:35 36.4 18 131/70 96 Room Air Exam General: Elderly female lying in bed and in no acute distress, well-developed, well-nourished, appropriately interactive. HEENT: Normocephalic, atraumatic. External ears without defect. Pupils equal, round, and reactive to light. Anicteric sclerae, moist conjunctivae, and no lid lag. Oropharynx free of erythema and cobble stoning with moist mucosa. Neck: Supple with full range of motion. No jugular venous distension. No bruits. No lymphadenopathy or thyromegaly. Cardiovascular: Regular rhythm and rate without murmurs, rubs, or gallops appreciated Pulmonary: Clear to auscultation bilaterally with no crackles, wheezes, or rhonchi. Normal respiratory effort with no use of accessory muscles. Abdomen: Soft, nontender, nondistended, bowel tones present. No hepatosplenomegaly or masses appreciated. Extremities: No clubbing, cyanosis, or edema. Skin: Normal temperature, turgor, and texture; no rash, ulcers, or subcutaneous nodules appreciated. Neurological: Cranial nerves grossly intact. Psychiatric: Normal mood and affect. Alert and oriented to person, place, and time. . Test 05/01/16 10:00 05/02/16 08:30 05/03/16 06:35 05/04/16 07:03 Magnesium Level 1.8mg/dL (1.6-2.6) Troponin T 0.010ug/L (0.0-0.011) Thyroid Stimulating Hormone (TSH) 1.830uIU/mL (0.450-4.500) Free Thyroxine 1.50ng/dL (0.82-1.77) Neutrophils (%) (Auto) 46.1% (40-74) Lymphocytes (%) (Auto) 40.7% (14-46) Monocytes (%) (Auto) 11.3% (4-12) Eosinophils (%) (Auto) 1.4% (0-5) Basophils (%) (Auto) 0.3% (0-3) White Blood Count 9.6th/mm3 (3.8-10.1) Red Blood Count 3.88mil/mm3 (3.90-5.20) Hemoglobin 12.3g/dL (12.0-15.6) Hematocrit 37.8% (35.0-46.0) Mean Corpuscular Volume 97.4fL (81-100) Mean Corpuscular Hemoglobin 31.7pg (27.0-35.0) Mean Corpuscular Hemoglobin Concent 32.5% (32.0-37.0) Red Cell Distribution Width 14.0% (12.3-15.4) Platelet Count 277bil/L (150-400) Sodium Level 140mEq/L (134-144) Potassium Level 4.2mEq/L (3.5-5.2) Chloride Level 101mEq/L (97-108) Carbon Dioxide Level 25mmol/L (18-29) Blood Urea Nitrogen 25mg/dL (8-27) Creatinine 0.66mg/dL (0.57-1.00) Estimat Glomerular Filtration Rate 122mL/min (>59) Glucose Level 115mg/dL (60-99) Calcium Level 9.1mg/dL (8.5-10.1) Total Bilirubin 0.2mg/dL (0.0-1.2) Aspartate Amino Transf (AST/SGOT) 36U/L (0-50) Alanine Aminotransferase (ALT/SGPT) 75U/L (0-32) Alkaline Phosphatase 59U/L (25-165) Total Protein 7.1g/dL (6.4-8.4) Albumin 4.1g/dL (3.4-5.0) Test 05/04/16 08:05 Prothrombin Time 24.0sec (8.1-12.5) Prothromb Time International Ratio 2.21ratio Activated Partial Thromboplast Time 58.8sec (22.8-33.0) Microbiology Results Stool occult blood negative. Respiratory viral PCR negative. . Discharge Medications Discharge Medications Amlodipine (Amlodipine) 2.5 Mg Tablet 2.5 MG PO DAILY (Reported) Aspirin (Aspirin) 81 Mg Tablet 81 MG PO DAILY (Reported) Dorzolamide HCl/Timolol Maleat (Dorzolamide-Timolol Eye Drops) 10 Ml Drops 1 GTT LEFT_EYE BID (Reported) Hydrochlorothiazide (Hydrochlorothiazide) 12.5 Mg Capsule 12.5 MG PO DAILY ( Reported) Isosorbide MN ER (Isosorbide MN ER) 30 Mg Tab.er.24h 30 MG PO DAILY Prescribed by: EULA CARTER MD Levothyroxine (Levothyroxine) 25 Mcg Tablet 25 MCG PO DAILY (Reported) Pantoprazole DR (Pantoprazole DR) 20 Mg Tablet.dr 20 MG PO BID (Reported) Pravastatin (Pravastatin) 80 Mg Tablet 80 MG PO DAILY (Reported) Prednisolone Acetate (Prednisolone Acetate) 5 Ml Drops.susp 1 DROP LEFT_EYE QID (Reported) Prednisone (PredniSONE) 5 Mg Tab 5 MG PO DAILY (Reported) Sotalol (Betapace) 80 Mg Tablet 80 MG PO BID Prescribed by: NATHANIEL BENAVIDES DO Warfarin Sodium (Warfarin Sodium) 2.5 Mg Tablet 4 MG PO DAILY Prescribed by: NATHANIEL BENAVIDES DO As needed Albuterol HFA (Proair HFA) 8.5 Gm Hfa.aer.ad 2 PUFFS INHALATION Q4H PRN PRN For Shortness of Breath (Reported) Nitroglycerin SL (Nitroglycerin SL) 0.4 Mg Tab.subl 0.4 MG SL Q5MIN PRN PRN For Chest Pain (Reported) Additional med instructions Continued medications: Albuterol 2 puffs inhaled every 4 hours as needed for shortness of breath. Amlodipine 2.5 mg daily. Clopidogrel 75 mg daily (recently discontinued). Dorzolamide-Timolol 1 gtt in eye twice a day. Hydrochlorothiazide 12.5 g daily. Isosorbide mononitrate ER 30 mg daily. Levothyroxine 25 g daily. Metoprolol tartrate 12.5 mg twice a day. Nitroglycerin 0.4 MG SL every five minutes as needed for chest pain. Pantoprazole DR 20 mg twice a day. Pravastatin 80 mg daily. Prednisolone Acetate 5 Ml Drops 1 drop left eye 4 times daily. New medications: Sotalol 80 mg twice a day. Warfarin sodium 4 mg daily. Discontinued medications: Warfarin sodium 2.5 mg daily. . Followup Plan Disposition: Home. . Follow-up plan Please [facility]-up with [facility] within the next week to have your INR checked. You will need to follow up with your plating engineer, Dr. Carter, in the next 2-4 weeks. You should receive a phone call regarding both of these appointments. If you do not hear from the [facility] or your plating engineer please call their office. . Discharge Diet: Low fat, Low Sodium, Heart Healthy Discharge Activity: Limited until seen by PCP Follow-up Provider: Eula Carter MD Follow-up with PCP in: 2 weeks Attending Statement The patient was seen and examined together with Dr. Benavides on 05-04-16 and I agree with the history, exam and plan as outlined in the note above. copies to: Jorge Zimmerman MD; Eula Carter MD, Georgia M DO May 04, 2016 11:38 Micah Angelo MD May 05, 2016 08:50
--- NOTE | 2016-05-04 12:22 | NUR ---
Discharge All personal belongings given to patient. IV discontinued fully intact. Discharge instructions explained to patient and daughter who is at bedside. Both verbalize understanding and agree to plan of care. Patient brought down to personal car by this RN
--- NOTE | 2016-05-04 13:28 | NUR ---
Social Work: Discharge Data: Pt is on day 3 of hospitalization. EMR reviewed. D/C orders are in. HH not needed at this time. No further d/c planning needed at this time. [facility] will continue to follow if needs arise. Assessment: Pt who is independent at baseline. Plan: Pt will d/c home via POV today. No further d/c planning needed at this time. [facility] will continue to follow if needs arise. KRISTINA Barnett
== END 2016-05-04 12:25 | disposition home or self-care (01) | DRG 310 ==
LOC: SED 09:49 → MPC 11:24
PROVIDERS: ADMIT Hospitalist; ATTEND Hospitalist
DX: I48.0 Paroxysmal atrial fibrillation (principal); I10 Essential (primary) hypertension; M35.3 Polymyalgia rheumatica; K21.9 Gastro-esophageal reflux disease without esophagitis; E78.5 Hyperlipidemia, unspecified; I25.10 Atherosclerotic heart disease of native coronary artery without angina pectoris; E03.9 Hypothyroidism, unspecified; S05.92XD Unspecified injury of left eye and orbit, subsequent encounter